=== PATIENT | male | born 1990 | race Caucasian/White ===

== ENCOUNTER 2016-11-12 01:35 | Emergency (ER) ==
[2016-11-12 01:51] VITALS: BP 130/79; TEMP 99; BMI 19.3
[2016-11-12] MEDS ORDERED: TORADOL IM STA (01:59)
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
== END 2016-11-12 04:15 | disposition home or self-care (01) ==
LOC: ED 01:35
DX: S02.2XXA Fracture of nasal bones, initial encounter for closed fracture (principal); S06.0X0A Concussion without loss of consciousness, initial encounter; R04.0 Epistaxis; F17.210 Nicotine dependence, cigarettes, uncomplicated; Y00.XXXA Assault by blunt object, initial encounter
CPT/HCPCS: 96372; 99283

== ENCOUNTER 2017-05-24 18:00 | Emergency (ER) ==
[2017-05-24 18:05] VITALS: BP 121/69; TEMP 97.9; BMI 17.1
[2017-05-24] MEDS ORDERED: TORADOL IM STA (18:08)
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
--- NOTE | 2017-05-25 04:11 | DI ---
EXAM: Left ankle three views HISTORY: Pain COMPARISON: None. FINDINGS: The ankle mortise and talar dome are intact. There is no acute fracture or dislocation. The soft tissues are unremarkable. IMPRESSION: No acute findings
== END 2017-05-24 18:45 | disposition home or self-care (01) ==
LOC: ED 18:00
DX: M25.572 Pain in left ankle and joints of left foot (principal); F17.210 Nicotine dependence, cigarettes, uncomplicated; Y93.51 Activity, roller skating (inline) and skateboarding
CPT/HCPCS: 96372; 99283

== ENCOUNTER 2018-07-24 19:57 | Emergency (ER) ==
[2018-07-24 20:06] VITALS: BP 125/88; TEMP 98.8; BMI 16.6
[2018-07-24] MEDS ORDERED: CLEOCIN PO STA (21:23)
--- NOTE | 2018-07-24 21:23 | ED.PDOC ---
General ED Provider: Dr. JOVANI WINSTON Chief Complaint: Bite Stated Complaint: Patient complains of a Dog bite from his dog. He states that he was trying to brake up a fight for food amongs his dogs. Shots on the Dog are up to date including Rabis shots Time Seen by Physician: 21:20 Mode of Arrival: Walk-In Information Source: Patient Nursing and Triage Documentation Reviewed and Agree: Yes Does patient meet sepsis criteria?: No If yes, has appropriate treatment been initiated?: No System Inflammatory Response Syndrome: Not Applicable Sepsis Protocol: For patient's 13 years and over: Temp is 96.8 and below OR 101 and greater Pulse >90 BPM Resp >20/minute Acutely Altered Mental Status Are patient's symptoms suggestive of a new infection, such as: -Pneumonia -Skin, Soft Tissue -Endocarditis -UTI -Bone, Joint Infection -Implantable Device -Acute Abdominal Infection -Wound Infection -Meningitis -Blood Stream Catheter Infection -Unknown Skin Complaint Exam - Laceration/Abrasion/Hand Complaint/Exam Location of Injury: Left, Hand, Digit #2 Mechanism of Injury: Puncture ( left 2nd finger with bleeding controlled. Also on back of right hand with ertythema with radiaton to the forearm), Abrasion, Sharp trauma Onset/Duration: 1 hour ago Symptoms Are: Still present Initial Severity: Severe Current Severity: Moderate Aggravating: Movement Alleviating: Compression Associated Signs and Symptoms: Denies: Fever, Chills, Erythema, Numbness, Tingling Related History: Reports: Right hand dominant Differential Diagnoses: Puncture Wound Review of Systems - Review Of Systems Constitutional: Reports: No symptoms Eyes: Reports: No symptoms Ears, Nose, Mouth, Throat: Reports: No symptoms Respiratory: Reports: No symptoms Cardiac: Reports: No symptoms GI: Reports: No symptoms : Reports: No symptoms Musculoskeletal: Reports: Muscle pain Skin: Reports: Bruising Neurological: Reports: No symptoms Endocrine: Reports: No symptoms Hematologic/Lymphatic: Reports: No symptoms All Other Systems: Reviewed and Negative Past Medical History - Past Medical History Previously Healthy: Yes Endocrine: Reports: None Cardiovascular: Reports: None Respiratory: Reports: None Hematological: Reports: None Gastrointestinal: Reports: None Genitourinary: Reports: None Neuro/Psych: Reports: None Musculoskeletal: Reports: None Cancer: Reports: None - Surgical History General Surgical History: Reports: None - Family History Family History: Reports: None - Social History Smoking Status: Current every day smoker, Heavy tobacco smoker Hx Substance Use: Yes (MARIJUANA) Alcohol Screening: None - Immunizations Tetanus Shot up to Date: Yes (3 years ago) Physical Exam - Physical Exam Appearance: Well-appearing Pain Distress: Moderate Respiratory: Airway patent, Breath sounds clear, Breath sounds equal, Respirations nonlabored Cardiovascular: RRR, Pulses normal, No rub, No murmur Skin: Warm, Dry Neurological: Sensation intact, Motor intact, Reflexes intact, Alert, Oriented Psychiatric: Anxious Critical Care Note - Critical Care Note Total Time (mins): 0 Course - Course Orders, Labs, Meds: Orders Category Date Time Status Clindamycin HCl [Cleocin] MEDS 07/24/18 21:23 Discontinued 300 mg PO ONCE STA Medications Discontinued Medications Generic Name Dose Route Start Last Admin Trade Name Freq PRN Reason Stop Dose Admin Clindamycin HCl 300 mg 07/24/18 21:23 07/24/18 21:30 Cleocin PO 07/24/18 21:24 300 mg ONCE STA Administration Vital Signs: Temp Pulse Resp BP Pulse Ox 07/24/18 19:58 98.8 F 92 H 20 125/88 96 Departure - Departure Time of Disposition: 21:40 Disposition: HOME SELF-CARE Discharge Problem: Dog bite of extremity Instructions: Animal Bite (ED) Condition: Fair Pt referred to PMD for follow-up: Yes IPMP verified?: No Additional Instructions: Keep wound clean and Dry Follow up with PCP in 3 days Take Medications as prescribed Prescriptions: Clindamycin HCl 300 mg PO TID #30 capsule Ibuprofen [Motrin] 600 mg PO Q6H PRN #30 tablet PRN Reason: Analgesia Allergies/Adverse Reactions: Allergies codeine Adverse Reaction (Verified 07/24/18 20:06) Difficulty Breathing hydrocodone Adverse Reaction (Verified 07/24/18 20:06) Nausea morphine Adverse Reaction (Verified 07/24/18 20:06) Difficulty Breathing Penicillins Adverse Reaction (Verified 07/24/18 20:06) Difficulty Breathing Home Medications: Ambulatory Orders Clindamycin HCl 300 mg PO TID #30 capsule 07/24/18 Ibuprofen [Motrin] 600 mg PO Q6H PRN #30 tablet 07/24/18 Disposition Discussed With: Patient, Family
== END 2018-07-24 21:37 | disposition home or self-care (01) ==
LOC: ED 19:57
DX: S61.251A Open bite of left index finger without damage to nail, initial encounter (principal); S61.451A Open bite of right hand, initial encounter; W54.0XXA Bitten by dog, initial encounter; F17.210 Nicotine dependence, cigarettes, uncomplicated
CPT/HCPCS: 99282